=== PATIENT | male | born 1960 | race Caucasian/White ===

== ENCOUNTER 2018-10-12 02:07 | Outpatient (CLI) | payer OTHER, SELFPAY ==
[2018-10-12 10:55] LABS: HCT 42.8 % (40.0-50.0); HGB 14.5 g/dL (13.5-17.5); Mean Corp. HGB Concentration 33.9 g/dL (32.0-36.0); Mean Corpuscular Hemoglobin 29.8 pg (27.0-33.0); Mean Corpuscular Volume 88.1 fL (80-95); Mean Platelet Volume 12.2 fL (8.0-11.0); Platelet Count 198 x1000/uL (130-400); RBC 4.86 m/cumm (4.50-6.00); RBC Distribution Width 13.8 % (11.8-14.1); White Blood Cell Count 6.41 k/cumm (4.4-10.8)
[2018-10-12 10:58] LABS: ALT 43 U/L (12-78); AST 21 U/L (15-37); Albumin 3.8 g/dL (3.4-5.0); Alkaline Phosphatase 78 U/L (46-116); Anion Gap 9.8 mmol/L (3-11); BUN 14 mg/dL (7-18); Bilirubin, Total 0.7 mg/dL (0.2-1.0); CO2 26.2 mmol/L (21.0-32.0); CREATININE 0.95 mg/dL (0.70-1.30); Calcium 9.7 mg/dL (8.5-10.1); Chloride 106 mmol/L (98-107); Glucose 101 mg/dL (70-100); Potassium 4.4 mmol/L (3.5-5.1); Sodium 142 mmol/L (136-145); Total Protein 6.9 g/dL (6.4-8.2)
[2018-10-12 11:13] LABS: Calculated LDL 128 mg/dL; Cholesterol 205 mg/dL (50-200); HDL Cholesterol 28 mg/dL (40-60); Triglyceride 248 mg/dL (30-150)
== END 2018-10-12 02:27 ==
PROVIDERS: PCP Family Medicine; Visit Provider Family Medicine
DX: E78.5 Hyperlipidemia, unspecified (principal); I10 Essential (primary) hypertension; M10.9 Gout, unspecified
CPT/HCPCS: 36415; 80053; 80061; 83721; 85027

== ENCOUNTER 2019-11-01 03:04 | Outpatient (CLI) | payer OTHER, SELFPAY ==
[2019-11-01 07:20] LABS: HCT 43.4 % (40.0-50.0); HGB 14.9 g/dL (13.5-17.5); Mean Corp. HGB Concentration 34.3 g/dL (32.0-36.0); Mean Corpuscular Hemoglobin 29.8 pg (27.0-33.0); Mean Corpuscular Volume 86.8 fL (80-95); Mean Platelet Volume 11.3 fL (8.0-11.0); Platelet Count 185 x1000/uL (130-400); RBC Distribution Width 13.6 % (11.8-14.1); White Blood Cell Count 5.99 k/cumm (4.4-10.8)
[2019-11-01 08:04] LABS: ALT 35 U/L (16-63); AST 25 U/L (15-37); Albumin 3.8 g/dL (3.4-5.0); Alkaline Phosphatase 82 U/L (46-116); Anion Gap 9.3 mmol/L (3-11); BUN 13 mg/dL (7-18); Bilirubin, Total 0.7 mg/dL (0.2-1.0); CO2 26.7 mmol/L (21.0-32.0); CREATININE 1.07 mg/dL (0.70-1.30); Calcium 9.5 mg/dL (8.5-10.1); Calculated LDL 119 mg/dL (<100); Chloride 104 mmol/L (98-107); Cholesterol 200 mg/dL (<200); Glucose 108 mg/dL (74-106); HDL Cholesterol 26 mg/dL (40-60); Sodium 140 mmol/L (136-145); Total Protein 6.9 g/dL (6.4-8.2); Triglyceride 279 mg/dL (<150)
== END 2019-11-01 03:24 ==
PROVIDERS: PCP Family Medicine; Visit Provider Family Medicine
DX: E78.5 Hyperlipidemia, unspecified (principal); I10 Essential (primary) hypertension; M10.9 Gout, unspecified
CPT/HCPCS: 36415; 80053; 80061; 85027

== ENCOUNTER 2020-05-03 11:19 | Outpatient (CLI) | payer OTHER, SELFPAY ==
--- NOTE | 2020-05-03 11:15 | DI.RAD_ITS ---
EXAM: XR HIP LT COMPLETE AP PELVIS CLINICAL HISTORY: LEFT HIP PAIN. TECHNIQUE: 2D digital imaging was performed. COMPARISON: No exams were available for comparison FINDINGS: BONES: No acute fracture is present. No bony destructive lesion is seen. JOINTS: There is narrowing of the left hip joint space. There is prominence of the lateral aspect of the left femoral head which may lead to impingement. The right hip appears well maintained. SOFT TISSUE: Normal. IMPRESSION: Degenerative changes of the left hip as described above. Findings raising the question of impingemen t of the left hip. DATA REPOSITORY: RADIATION DOSE DELIVERED:
== END 2020-05-03 11:39 ==
PROVIDERS: PCP Family Medicine; Referring Provider Family Medicine; Visit Provider Student in an Organized Health Care Education/Training Program
DX: M16.12 Unilateral primary osteoarthritis, left hip (principal)
CPT/HCPCS: 73502

== ENCOUNTER 2020-09-21 19:38 | Outpatient (REF) | payer OTHER, SELFPAY ==
[2020-09-23 22:36] LABS: COVID-19 RT-PCR UVMMC Result Positive (Negative)
== END 2020-09-21 19:39 | disposition home or self-care (01) ==
LOC: LBN 19:38
PROVIDERS: PCP Nurse Practitioner Family; Visit Provider Nurse Practitioner Family
DX: Z20.822 Contact with and (suspected) exposure to COVID-19 (principal); J02.9 Acute pharyngitis, unspecified
CPT/HCPCS: U0003

== ENCOUNTER 2020-11-01 03:21 | Outpatient (CLI) | payer OTHER, SELFPAY ==
[2020-11-01 13:03] LABS: Hemoglobin A1C 5.3 % (<5.7)
[2020-11-01 13:12] LABS: ALT 30 U/L (16-63); AST 20 U/L (15-37); Albumin 3.8 g/dL (3.4-5.0); Alkaline Phosphatase 68 U/L (46-116); BUN 16 mg/dL (7-18); Bilirubin, Total 0.7 mg/dL (0.2-1.0); CREATININE 0.9 mg/dL (0.70-1.30); Calcium 9.3 mg/dL (8.5-10.1); Calculated LDL 90 mg/dL (<100); Chloride 106 mmol/L (98-107); Cholesterol 151 mg/dL (<200); Glucose 105 mg/dL (74-106); HDL Cholesterol 36 mg/dL (40-60); Potassium 4.5 mmol/L (3.5-5.1); Sodium 143 mmol/L (136-145); Total Protein 6.7 g/dL (6.4-8.2); Triglyceride 126 mg/dL (<150)
== END 2020-11-01 03:22 | disposition home or self-care (01) ==
LOC: LOS 03:21
PROVIDERS: PCP Nurse Practitioner Family; Visit Provider Nurse Practitioner Family
DX: Z00.00 Encounter for general adult medical examination without abnormal findings (principal); Z13.220 Encounter for screening for lipoid disorders; Z13.1 Encounter for screening for diabetes mellitus
CPT/HCPCS: 36415; 80053; 80061; 83036

== ENCOUNTER 2021-11-22 01:05 | Outpatient (CLI) | payer OTHER, SELFPAY ==
[2021-11-22 12:41] LABS: CREATININE 0.9 mg/dL (0.70-1.30)
== END 2021-11-22 01:06 | disposition home or self-care (01) ==
LOC: LOS 01:05
PROVIDERS: PCP Nurse Practitioner Family; Visit Provider Nurse Practitioner Family
DX: I10 Essential (primary) hypertension (principal)
CPT/HCPCS: 36415; 82565

== ENCOUNTER 2022-05-05 02:47 | Outpatient (CLI) | payer OTHER, SELFPAY ==
[2022-05-05 10:45] LABS: HCT 47.7 % (40.0-50.0); HGB 16.2 g/dL (13.5-17.5); MCH 29.9 pg (27.0-33.0); MCV 88 fL (80-95); MPV 11.1 fL (8.0-11.0); Platelet Count 215 10^3/uL (130-400); RBC 5.41 10^6/uL (4.36-5.78); RDW 12.7 % (11.8-14.1); RDW-SD 41.3 fL; WBC 7.93 10^3/uL (4.4-10.8)
[2022-05-05 11:19] LABS: Anion Gap 6.6 mmol/L (3-11); BUN 23 mg/dL (7-18); CO2 28.4 mmol/L (21.0-32.0); Calcium 9.4 mg/dL (8.5-10.1); Chloride 104 mmol/L (98-107); Estimated GFR 86.16 (mL/min/1.73m2); Glucose 110 mg/dL (74-106); Potassium 4.4 mmol/L (3.5-5.1); Sodium 139 mmol/L (136-145)
== END 2022-05-05 02:48 | disposition home or self-care (01) ==
LOC: LBO 02:47
PROVIDERS: PCP Nurse Practitioner Family; Visit Provider Student in an Organized Health Care Education/Training Program
DX: M16.12 Unilateral primary osteoarthritis, left hip (principal); Z01.818 Encounter for other preprocedural examination
CPT/HCPCS: 36415; 80048; 85027

== ENCOUNTER 2022-05-05 11:27 | Outpatient (CLI) | payer OTHER, SELFPAY ==
--- NOTE | 2022-05-05 11:00 | DI.RAD_ITS ---
Exam(s) XR PELVIS AP EXAM: XR PELVIS AP CLINICAL HISTORY: left hip pain. TECHNIQUE: 2D digital imaging was performed. COMPARISON: CR XR HIP LT COMPLETE AP PELVIS from 05/03/2020 FINDINGS: BONES: No acute fracture is present. No bony destructive lesion is seen. JOINTS: No dislocation present. Moderate to severe narrowing of the right superior hip joint space. Spurring at the inferior margin of the femoral head. Adjacent calcification. Slight worsening when compared with prior. Right hip unremarkable. SOFT TISSUE: Normal. IMPRESSION: Moderate severe degenerative changes left hip. DATA REPOSITORY: RADIATION DOSE DELIVERED:
== END 2022-05-05 11:28 | disposition home or self-care (01) ==
LOC: DIORS 11:28
PROVIDERS: PCP Nurse Practitioner Family; Referring Provider Nurse Practitioner Family; Visit Provider Physician Assistant
DX: M16.12 Unilateral primary osteoarthritis, left hip (principal)
CPT/HCPCS: 72170

== ENCOUNTER 2022-05-14 05:46 | Day surgery (SDC) | payer OTHER, SELFPAY ==
[2022-05-14] VITALS (16 sets, daily range): BP systolic 73–171; BP diastolic 36–99; PULSE 39–55; RESP 15–21; TEMP 35.6–36.6; O2SAT 96–100; BMI 32.8
[2022-05-14] MEDS: Acetaminophen 500 MG TAB 1000 MG PO (06:33)
[2022-05-14] MEDS: Celecoxib 200 MG CAP 400 MG PO (06:33)
[2022-05-14] MEDS: Lactated Ringers 1,000 ML 80 ML IV (06:55)
--- NOTE | 2022-05-14 06:57 | ANES.PREOP_ITS ---
General Info Date of Service Date Performed: 05/14/22 Height: 5 ft 10 in Weight: 103.7 kg Body Mass Index (BMI): 32.8 Surgical Procedure: Operation Date: 05/14/22 07:50 Proposed Procedure Side Surgeon p Hip Total Hip Anterior Left Vivek Aleman MD Meds Allergies and Home Medications Allergies Allergy/AdvReac Type Severity Reaction Status Date / Time Penicillins Allergy Intermediate HIVES Verified 05/14/22 06:16 amlodipine Allergy Mild Verified 05/14/22 06:16 Home Medication Medication Instructions Recorded lisinopril 10 mg tablet (Zestril) 5 mg PO BID #90 tab-caps 11/11/21 rosuvastatin 10 mg tablet 10 mg PO HS #90 tabs 11/18/21 allopurinol 300 mg tablet 300 mg PO DAILY #90 tab-caps 02/10/22 atenolol 25 mg tablet 25 mg PO BID #180 tab-caps 02/10/22 diltiazem HCl 120 mg 120 mg PO DAILY #90 tab-caps 02/10/22 capsule,extended release 24 hr (Cardizem CD) naproxen sodium 220 mg tablet 660 mg PO BID PRN 05/14/22 (Aleve) Current Visit Medications: Current Medications Generic Name Dose Route Start Last Admin Trade Name Freq PRN Reason Stop Dose Admin Acetaminophen 1,000 mg 05/14/22 06:00 05/14/22 06:33 Acetaminophen 500 Mg Tab PO 1,000 mg PREOP STERLING Administration Celecoxib 400 mg 05/14/22 06:00 05/14/22 06:33 Celecoxib 200 Mg Cap PO 400 mg PREOP STERLING Administration Tranexamic Acid 1,000 mg/ 60 mls @ 360 mls/hr 05/14/22 06:00 Sodium Chloride IV PREOP STERLING Ringer's Solution 1,000 mls @ 80 mls/hr 05/14/22 06:00 IV 06/12/22 23:59 INFUSION STERLING Cefazolin Sodium/Dextrose 2 gm in 50 mls @ 100 mls/hr 05/14/22 06:00 Ancef Duplex IVPB 06/12/22 23:59 PREOP STERLING IV Miscellaneous Supplies 1 each 05/14/22 06:00 Iv Access IV 06/12/22 23:59 DIRECTED STERLING Sodium Chloride 0 ml 05/14/22 06:00 Normal Saline Flush 10 Ml Syr IV 06/12/22 23:59 PRN PRN Sodium Chloride 0 ml 05/14/22 06:00 Normal Saline 10 Ml Vial IJ 06/12/22 23:59 DIRECTED PRN Sterile Water 0 ml 05/14/22 06:00 Water,Injection,Sterile 10 Ml Vial IJ 06/12/22 23:59 DIRECTED PRN PFSH Active Problems Active Problems: Problem Status Onset Code Essential hypertension I10 Gout 08/17/13 M10.9 Hyperlipidemia 08/11/12 E78.5 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 Tobacco Smoking/Tobacco Use Status: Never Passive smoking exposure: Yes Second hand exposure: Yes Alcohol Alcohol Intake: current Alcohol intake frequency: a few times a month Alcohol type: beer Substance Use Substance use: Never Substance use type: does not use Details: alcohol:t-2, one beer Vital Signs and Lab Results Vital Signs Most Recent Vital Signs in EMR: Most Recent Vital Signs Temp Pulse Resp BP Pulse Ox 36.2 C L 46 L 18 171/99 H 98 05/14/22 06:22 05/14/22 06:22 05/14/22 06:22 05/14/22 06:22 05/14/22 06:22 Lab Results Blood Type / Crossmatch: No Data to Display Complete Blood Count: White Blood Count 7.93 10^3/uL (4.4-10.8) 05/05/22 10:40 Red Blood Count 5.41 10^6/uL (4.36-5.78) 05/05/22 10:40 Hemoglobin 16.2 g/dL (13.5-17.5) 05/05/22 10:40 Hematocrit 47.7 % (40.0-50.0) 05/05/22 10:40 Platelet Count 215 10^3/uL (130-400) 05/05/22 10:40 Complete Metabolic Panel: Sodium 139 mmol/L (136-145) 05/05/22 10:40 Potassium 4.4 mmol/L (3.5-5.1) 05/05/22 10:40 Chloride 104 mmol/L (98-107) 05/05/22 10:40 Carbon Dioxide 28.4 mmol/L (21.0-32.0) 05/05/22 10:40 BUN 23 mg/dL (7-18) H 05/05/22 10:40 Creatinine 1.0 mg/dL (0.70-1.30) 05/05/22 10:40 Est GFR (CKD-EPI 2020) 86.16 (mL/min/1.73m2) 05/05/22 10:40 Calcium 9.4 mg/dL (8.5-10.1) 05/05/22 10:40 Glucose 110 mg/dL (74-106) H 05/05/22 10:40 Liver Function Panel: No Data to Display Coagulation Panel: No Data to Display Cardiac Panel: No Data to Display Arterial Blood Gas: No Data to Display Venous Blood Gas: No Data to Display Pancreas Panel: No Data to Display Thyroid Panel: No Data to Display Infectious Disease: No Data to Display Blood Cultures: No Data to Display Toxicology Panel: No Data to Display Anesthesia Assessment and Plan Anesthesia History Personal History: No History of Anesthesia Complications Family History: No Family History of Anesthesia Complications Exercise Tolerance Exercise Tolerance: Metabolic Equivalents>4 Pertinent Negatives Pertinent Negatives: No Symptoms of GERD, No Major Cardiovascular Symptoms or Complaints and No Major Pulmonary Symptoms or Complaints Cardiac & Pulmonary Exam Cardiac Exam: Normal S1/S2 Heart Sounds Pulmonary Exam: Clear Bilateral Breath Sounds Implantable Cardiac Device Does patient have a Pacemaker or an ICD?: No Airway Exam Known Difficult Airway: No Mallampati Class: 3 Mouth Opening: Normal (> 3cm) Thyromental Distance: Greater than 3 cm Facial Hair: Full Barrera Neck Range of Motion: Full ROM Neck Circumference: Thick Teeth Condition: Normal Dentition ASA Classification ASA Score: ASA 2 Emergency Case?: No NPO Status NPO Status: NPO Clears >2 hours, Solids >8 hours Anesthesia Plan Resuscitation Status: Full Code Anesthesia Technique: Spinal Anesthesia Airway Planned: Natural Airway Monitors Used: Standard Monitors
[2022-05-14] MEDS: ceFAZolin 2 GM/50 ML BAG IVPB (07:43)
--- NOTE | 2022-05-14 08:12 | W.PM.DS.N ---
Date of service: 05/14/22 Time of Service: 09:59 Discharge Plan Disposition Patient Disposition: Home Condition: Good Discharge Details Reason For Visit: Left hip DJD Attending Provider: Vivek Aleman Primary Care Provider: Prakash Eubanks Home Meds and New Rx's Prescriptions: New celecoxib [Celebrex] 200 mg capsule 200 mg PO BID PRNQty: 60 0RF Rx Instructions: Take one tablet twice daily for pain and inflammation aspirin 81 mg tablet,delayed release (DR/EC) 81 mg PO BID 30 Days Qty: 60 0RF acetaminophen 500 mg tablet 500 mg PO Q6H PRN (Reason: pain) Qty: 60 2RF pantoprazole 40 mg tablet,delayed release (DR/EC) 40 mg PO DAILY Qty: 14 0RF dexamethasone 4 mg tablet 4 mg PO DAILY Qty: 2 0RF Rx Instructions: Take one tablet once daily for two days docusate sodium [Colace] 100 mg capsule 100 mg PO BID Qty: 30 0RF oxycodone 5 mg tablet 5 mg PO Q6H PRN (Reason: severe post-operative pain) Qty: 12 0RF Rx Instructions: Take one tablet up to every 6 hours as needed for severe pain Continued lisinopril [Zestril] 10 mg tablet 5 mg PO BID Qty: 90 0RF rosuvastatin 10 mg tablet 10 mg PO HS Qty: 90 3RF allopurinol 300 mg tablet 300 mg PO DAILY Qty: 90 4RF diltiazem HCl [Cardizem CD] 120 mg capsule,extended release 24hr 120 mg PO DAILY Qty: 90 4RF atenolol 25 mg tablet 25 mg PO BID Qty: 180 4RF Discontinued naproxen sodium [Aleve] 220 mg Tablet 660 mg PO BID PRN Discharge Instructions Additional Instructions: Total Hip Discharge Instructions Activity: The most important activity is to walk. You should try to take short walks a few times a day. You have no restrictions on movement or positioning, but do not try to force what you do. You will find some stiffness and weakness with hip flexion (lifting your knee). Do not try to strengthen this too early, continue to practice walking and stairs and this will come. - Outpatient physical therapy can be helpful to help return you to a normal gait and improve your flexibility and strength. This can start around 2 weeks. For some patients, it?s not necessary. Usually this is determined at the time of discharge or at the first post-operative visit. - You should wear the JOSEFA hose on both legs for 2 weeks. Dressing: Keep the surgical dressing in place for at least one week. After the first week it may be removed and replace with light gauze and tape or nothing. It may get wet after 3 days but avoid soaking the dressing. If it gets wet, just lightly pat dry. It is important to always keep some gauze between skin folds, especially when you are sitting. Spend some time with the wound exposed when you are lying flat as the incision does wrinkle onto itself. Medications: - You should take Tylenol and an anti-inflammatory Celebrex as your primary pain control medications. If the Celebrex is too expensive or not covered, please call the office for another alternative (Advil/Ibuprofen or Naproxen/Aleve). - You have been prescribed a stronger pain medication Oxycodone for breakthrough pain, take as needed as prescribed. - You have also been prescribed a stomach acid reduction agent Pantoprozole to help reduce stomach acid and reflux. - You have also been prescribed Decadron to help with post-operative nausea and pain. You will take this for two days starting tomorrow. - You will be taking Aspirin 81mg twice a day for DVT prevention unless instructed otherwise. - If you have constipation you should take Colace (which was prescribed) or Miralax (which is available [id number]). It takes most people 3-4 days to have a bowel movement. Follow-up: 2 weeks If you have any acute concerns or questions, please do not hesitate to contact the office at [phone]. You may contact Dr. Aleman with any questions after hours through the hospital at [phone] or on his cell phone at [phone]. Stand Alone Forms: Anesthesia Discharge Inst., Chiki Burkett ([facility]U) Referrals: Vivek Aleman MD [ [facility] STAFF PHYSICIAN] - Equipment/Supplies: Walker Activity:: Activity as Tolerated Remove Dressings/Wound Care:: Do Not Remove Shower/Bathe:: Cover Diet:: As Tolerated Discharge Orders Discharge Orders: Discharge Order (Routine); Ordered 05/14/22 Ordered By: Vivek Aleman DS: Summary Time Spent with Patient providing and/or coordinating discharge services: Less than 30 minutes Status at Discharge Functional status at discharge: uses cane/walker Overall status at discharge: patient is progressing back to baseline Mental Status: mental status grossly normal Speech and Movement: speech and movement normal Mood: congruent mood Affect: normal affect Exam Psych Mental Status: mental status grossly normal Speech and Movement: speech and movement normal Mood: congruent mood Affect: normal affect DS: Data Vitals/I&O Vitals and I&O: Vital Signs Temperature 97.2 F L 05/14/22 06:22 Pulse 46 L 05/14/22 06:22 Pulse Rhythm Regular 05/14/22 06:22 Respiratory Rate 18 05/14/22 06:22 Respiratory Depth Normal 05/14/22 06:22 Blood Pressure 171/99 H 05/14/22 06:22 Pulse Oximetry 98 05/14/22 06:22 Oxygen Delivery Method Room Air 05/14/22 06:22 Oxygen Flow Rate 0 05/14/22 06:22 Pain Level 5 05/14/22 06:22 Intake & Output 05/13/22 05/13/22 05/14/22 11:59 23:59 11:59 Intake Total 110 / 110 Balance 110 / 110 Weight 230 lb 228 lb 9.91 oz Intake: IV 110 / 110 PFSH All Active Problems (Updated 05/14/22 @ 07:34 by Geena Matta) Essential hypertension (Acute) Gout (Acute 08/17/13) Hyperlipidemia (Acute 08/11/12) Femoral acetabular impingement (Acute) Osteoarthritis of left hip (Acute) Fatigue (Acute) Medical History (Updated 05/14/22 @ 07:34 by Geena Matta) History of obstructive sleep apnea uses CPAP Hx of essential hypertension Hx of gout Hx of hyperlipidemia Surgical History RETINAL SURGERY (12/12/16) [facility] Family History Mother , 80 years old Lung cancer Father , ANEURYSM at age 79. Essential hypertension AAA (abdominal aortic aneurysm) Heart disease Hyperlipidemia Sister No problems noted. Maternal Grandfather , 77 Essential hypertension Heart disease Hyperlipidemia Prostate cancer Paternal Grandfather , 45 Essential hypertension Heart disease Maternal Grandmother , 89 No problems noted. Paternal Grandmother , 62 Lung cancer smoker Sister Breast cancer Social History (Updated 10/10/21 @ 10:01 by Karina Mayorga) Smoking/Tobacco Use Status: Never Second Hand Exposure: Yes Smoking risk assessment performed?: Yes Alcohol Intake: current Alcohol Intake frequency: a few times a month Alcohol type: beer Drug use: Never Substance use type: does not use Details: alcohol:t-2, one beer Caregiver/Support person: No Household members: none Housing: house Communication Needs: None Do you need help understanding health information?: Never Pets and animals: Yes Pets and animals: dog(s) Sexually active: Yes Do you think of yourself as: straight/heterosexual Current gender identity: male What is your relationship status?: How often do you talk on the phone with friends or family?: three or more times per week How often do you get together with friends or relatives?: once per week How often do you attend sikhism or presybeterian services?: 1-3 times per year Do you belong to any clubs or organized social groups?: yes Panel score (0-1 are the most socially isolated patients): 2 What type of physical activity do you participate in: walking Duration: 15-30 minutes/day Frequency: daily Adela/Episcopalian: No preference Special adela needs: No Seatbelt use: always Helmet use: No Drive intox or ride w/intox van driver helper: No Do you feel safe at home: Yes Do you feel safe in your relationship?: Yes Additional Social history: unable to assess privately Time Spent with Patient Time Spent with Patient: <45 minutes Time was spent: ordering medications,tests, procedures, referring, communicating with other health inpatient care manager rn, counseling the patient and care coordination
--- NOTE | 2022-05-14 09:00 | DI.RAD_ITS ---
Exam(s) XR HIP LT IN OR EXAM: XR HIP LT IN OR CLINICAL HISTORY: left total hip. TECHNIQUE: 2D and realtime digital imaging was performed. COMPARISON: CR XR PELVIS AP from 05/05/2022 FINDINGS: Hard copy images show placement of a left hip prosthesis. The alignment appears satisfactory. Please see procedure note for details. Fluoro time: 33seconds RADIATION DOSE DELIVERED: Ka,r=5.73 mGy
[2022-05-14] MEDS: ePHEDrine 25 MG/5 ML Syringe IVP ×3 (09:45→10:05)
[2022-05-14] MEDS: fentaNYL 100 MCG/2 ML VIAL IVP (10:34)
--- NOTE | 2022-05-14 10:40 | W.ANESPOSTOP ---
Postoperative Evaluation Date, Time and Location Date Performed: 05/14/22 Time Performed: 10:40 Patient Location: PACU Vital Signs Most Recent Imported Vital Signs: Most Recent Vital Signs Temp Pulse Resp BP Pulse Ox 36.6 C 42 L 15 117/63 100 05/14/22 10:20 05/14/22 10:35 05/14/22 10:35 05/14/22 10:35 05/14/22 10:35 Pain Score Most Recent Pain Score: Most Recent Pain Score Pain Level 7 05/14/22 10:35 Assessment Mental Status: Awake (Alert & Oriented to Patient Baseline) Airway and Respiratory Function: Patent airway with normal (patient baseline) respiratory exam Cardiovascular Function: Hemodynamically Stable Hydration Status: Adequately Hydrated Nausea & Vomiting: No Nausea or Vomiting Pain: Pt. Denies Any Pain Peripheral Nerve Block: Patient did not receive a nerve block
--- NOTE | 2022-05-14 12:55 | PT.INIE ---
Date of service: 05/14/22 Time of Service: 12:55 PT Notes Visit Reasons: Left hip DJD Physical Therapy Day Surgery Initial Evaluation Date: 05/14/2022 Referring Doctor: GALI Hui PT Orders: PT CONSULT: S/p Ortho surgery Precautions: WBAT on left LE with AD. Patient Profile/Admitting Diagnosis: Estevan is a 61-year-old male with degenerative joint disease of the left hip and status post left anterior total hip arthroplasty on postoperative day 0. PMHX: All Active Problems?(Updated 06/28/21 @ 10:31 by Prakash Eubanks NP) Fatigue (Acute) Osteoarthritis of left hip (Acute) Femoral acetabular impingement (Acute) Hyperlipidemia (Acute 08/11/12) Gout (Acute 08/17/13) Essential hypertension (Acute) Surgical History? RETINAL SURGERY (12/12/16) [facility] Social History/Home Situation: Independent with aspects of ADLs prior to surgery. Lives with in a private home with 3 steps to enter with 1 rail, 7 steps down to their bedroom with 1 rail. Owns a restaurant with . Equipment Owned/DME: None Subjective: Reports minimal burning sensation at surgical incision site. Objective: General Observation: TEDS to B legs. Cold pack to left hip. Alert and oriented x4 Mental Status: Pain: 2-3/10 in the L hip ROM: Right Lower Extremity: Hip flexion WFL. Hip abduction WFL. Knee flexion WFL. Ankle dorsiflexion WFL. Ankle plantarflexion WFL. Left Lower Extremity: Hip flexion WFL. Hip abduction WFL. Knee flexion WFL. Ankle dorsiflexion WFL. Ankle plantarflexion WFL. Strength: Right Lower Extremity: Hip flexors 5/5. Hip abductors 5/5. Knee flexors 5/5. Knee extensors 5/5. Ankle dorsiflexors 5/5. Ankle plantarflexors 5/5. Left Lower Extremity:Hip flexors 4/5. Hip abductors 4/5. Knee flexors 5/5. Knee extensors 4/5. Ankle dorsiflexors 5/5. Ankle plantarflexors 5/5 Sensation: Intact as to pain and light pressure in bilateral lower extremities Bed Mobility/Transfers: Supine to sit standby assist Sit to stand standby assist Stand to sit standby assist Bed to chair standby assist Gait: Tolerated level surface ambulation 150 feet using front wheeled walker with step through gait pattern with report of burning sensation at surgical incision site that is minimally limited distance covered. Stairs: Negotiated 6 x 4-inch steps and 4 x 6-inch steps while holding onto a rail with one hand and a single-point cane with the other hand using step-to gait pattern with standby assist. Balance: Static Sitting: Normal Dynamic Sitting: Normal Static Standing: Fair Dynamic Standing: Fair Special Tests: Mobility Limitations Standardized Measure [facility] [place] AM-PAC 6 clicks Basic Mobility Inpatient Short Form: Raw Score: 23 CMS Score: 11% deficit Informed Consent/Education: Patient instructed in purpose of PT consult. Packet containing MADDY exercise protocol has been given to patient. Education and training on initial set of exercises that can be done at home have been completed with patient and . THERA EX: Supine glutes sets x 5 Supine heel slides x 5 Supine ankle pumps x 10 Seated marches x 5 LAQ x 5 Assessment: Estevan requires the use of a front-wheeled walker to maximize independence and reduce fall risk for all mobility ADL performance at home. Patient presents with clinical signs and symptoms consistent with current/admitting diagnoses that have resulted to mobility limitations, gait instability, generalized weakness, and impairment of motor control as demonstrated by the following impairment level findings: 1. Decreased strength to left knee major muscle groups 2. Impaired standing balance Impairments are contributing to the following functional limitations: 1. Inability to safely ambulate without assistive device 2. Increase completion time for mobility ADL performance Patient is assessed as a complexity based on the following: History: 61-year-old male with impairment level findings, functional limitations, and past medical history as indicated above Examination: Demonstrable impairment in strength, balance, and mobility level with underlying impairments and functional limitations as documented above Presentation: Evolving Decision Makin moderate complexity Goals: N/A. PT evaluation and 1-2 treatment sessions only for functional mobility training using recommended AD and for HEP instruction. Plan of Care/Treatment Plan: N/A. PT evaluation and 1-2 treatment session only for functional mobility training using recommended AD and for HEP instruction. DISCHARGE RECOMMENDATIONS: Home when medically cleared by orthopedic surgeon. Recommend outpatient PT services in order to optimize functional mobility outcomes and facilitate return to independent community ambulation and vocational activities without an assistive device TREATMENT CODE/TIME: . [id number] x 20 minutes, [id number] x 15 minutes beginning at 12:55 PM. Thank you for the opportunity to participate in the care of this patient. Jazmín Marsh PT, DPT, CLT [facility] [place], [place]
--- NOTE | 2022-05-14 16:23 | ROE_ITS ---
Date of service: 05/14/22 Time of Service: 09:15 Operative Note Operative Note DATE OF PROCEDURE: 05/14/22 PRE-OP DIAGNOSIS: Left Hip Femoroacetabular Impingement and Osteoarthritis POST-OP DIAGNOSIS: same PROCEDURE: Left Anterior Total Hip Arthroplasty with Intraoperative Navigation SURGEON: Vivek Aleman CRIMINAL PSYCHOLOGIST: Naheed Garcia ANESTHESIA TYPE: Spinal Refer to Anesthesia Record ESTIMATED BLOOD LOSS: 350 PATHOLOGY: none sent TOURNIQUET TIME: 0 COMPLICATIONS: None Patient was transported to: PACU Patient's condition: stable Implants: 1. Depuy [place] Acetabular Component, 56mm 2. Depuy Acetabular Liner, [id number] 3. Depuy Corail Standard 125 degree Collared Femoral Stem, Size 14 4. Depuy Altrx Ceramic Femoral Head, Size 36+1.5mm Indications: I have seen Estevan in clinic for symptoms of hip arthritis, confirmed with radiographic findings. He has exhausted nonoperative methods and was having significant limitations in daily function and desired better function and less pain. I discussed the technical details of a hip replacement. I explained the risks of the procedure to include, but not limited to, bleeding, infection, pain, stiffness, fracture, damage to nerves and vessels, damage to muscles and tendons, loosening, instability, leg length inequality, need for repeat procedure, blood clot and cardiopulmonary demise. Despite these risks, Estevan elected to proceed. Findings: There was full thickness chondromalacia of the superior femoral head. Procedure Description: Estevan was greeted in the preoperative holding area where the correct side was identified and marked. The consent was reviewed with the patient and signed. The history and physical was updated. All questions were answered. Estevan was taken back to the operating room. A spinal anesthestic was then administered. The feet were wrapped with cast padding and Coban and then placed into the boot liners and then into the boots. Care was taken to protect the skin and make sure the heels were fully down and the boots were stable. The patient was then positioned onto the HANA table. Both legs were held in a neutral position. SCDs were applied. The patient was then slid down onto a peroneal post. Prophylactic antibiotics in the form of Cefazolin were administered. 1g of Tranxemic Acid was given intravenously within 30 minutes of incision. The left leg was then prepped with Chloraprep and draped in a standard fashion. A second prep with Chloraprep was performed prior to placement of a shower-curtain type drape with Iodine impregnated skin protection. A timeout to confirm correct identity, side and site, procedure, allergies, anesthesia, and medical concerns was performed. An obliquely oriented incision was made starting lateral to the ASIS and running distal over the Tensor Fascia Stephanie (TFL) muscle belly toward the fibular head, approximately 10cm. The skin and soft tissue was dissected sharply, through Guanako?s fascia, and to the fascia of the TFL. With the fascia and superior border of the IT band identified, the fascia was incised with a new knife just above any perforators from the IT band. The TFL muscle belly was bluntly dissected away from the fascia and moved laterally. The fat between TFL and rectus was identified to ensure the dissection was not within the TFL. Blunt dissection created space between abductors and the capsule and retractor was placed over the lateral femoral neck. The fibers of the rectus femoris tendon were identified and these were freed from the anterior capsule. A second cobra retractor was placed around the medial femoral neck. The TFL was further retracted laterally to show the deep fascia. Careful dissection through this layer identified three main crossing vessels of the lateral femoral circumflex. These were cauterized in multiple locations and then cut without any noticeable bleeding. The TFL was further released bluntly from the deep fascia to expose anterior hip capsule and fat The Marcio orthopaedic retractor was then placed beneath the TFL and against sartorius and medial soft tissues to protect and retract the soft tissues. A T-capsulotomy was then performed starting at the superior lateral acetabulum and moving distally to the intertrochanteric ridge. These capsular flaps were tagged with a No. 1 Ethibond and elevated from within. The capsular flaps were released to the shoulder of the lateral neck and to the lesser trochanter to give excellent visualization of the proximal femur. A neck osteotomy was performed using an oscillating saw based on preoperative templates. This cut started in the shoulder and of the lateral neck and exited medially. The saw was at all times directed medially to avoid injury to the greater trochanter. Gross traction was applied to the leg and the osteotomy opened. The femoral head was removed with a corkscrew, making sure to protect the TFL on its exit. Traction was released after head removal. This was measured on the back table to determine the starting reamer size. Portions of the rectus obscuring visualization were minimally elevated off the superior acetabulum. An anterior retractor was placed over the anterior wall between capsule and labrum and attached to the Gripper retraction system. The femur was rotated to 90 degrees and medial capsule was fully released until the lesser trochanter was palpable and visible; the femur was returned to 30 degrees. A posterior retractor was placed similarly between capsule and labrum. This provided excellent visualization. The contents of the cotyloid fossa were removed with electrocautery and the labrum was removed with a knife. Acetabular reaming began with a 52mm reamer. This first reaming was directed anterior to posterior and medial to get down to the true floor. This was inspected and reamed until the true floor was reached. The anterior retractor was then released and entry and exit was provided by traction on the capsular flaps. I then reamed sequentially up to a 56mm reamer where good fit was obtained. The larger reamers were oriented based on anatomical reference of the anterior and lateral patricio to ensure proper abduction and anteversion. Positioning and size was confirmed with the fluoroscopy. A 56mm Depuy [place] acetabular component was selected. The acetabulum was reamed around the periphery with the selected acetabular size to prevent a rim fit. The deep tissues were irrigated. The acetabular component was then impacted in a position of about 40-45 degrees of abduction and 15-20 degrees of anteversion, using the patient?s anatomy as the ultimate landmark. Fluoroscopy was used to confirm this. There was excellent religious leader of the acetabular component and the inserting handle was removed. The acetabular liner, Depuy 40d20ne polyethylene liner, was inserted and lined up with the tines of the acetabular component. There was no soft tissue interposition. The liner was then impacted into position and confirmed to be well-seated. A portion of the treva-articular cocktail was then injected around the acetabulum into the capsule and periosteum. This cocktail consisted of 123mg of Ropivacaine, 0.25mg of Epinephrine, 0.04mg of Clonidine, and 15mg of Ketorolac, diluted to 50cc. The leg was rotated to 120 degrees. Any remaining medial capsule was released until the lesser trochanter was easily palpable. A retractor was placed medially. The lateral capsule was further released into the shoulder to allow access to the greater trochanter. A Flores retractor was placed over the greater trochanter which allowed the trochanter to flip in front of the capsule for excellent exposure. The leg was brought down into maximal extension and 20 degrees of adduction while ensuring there was no impingement on the acetabulum. Any remnant capsule within the trochanter was released. Piriformis and obturator externis were identified and protected. There was excellent access to the proximal femur. The lateral neck remnant was removed with a rongeur. A blunt canal probe was used to identify the canal and trajectory for later broaching. A box osteotome initiated the broach course. A small curved rasp and a curved curette were used to work laterally. Broaching then began with a size 8 Corail broach. This was inserted manually around the trochanter and into the canal before mallet blows. The broach was seated to a few millimeters below the cut level based on the neck cut and the preoperative template. Sequential broaching was continued with the [employer] pneumatic broaching device until a tight fit was obtained with good rotational control of the femur. A trial standard 125 degree neck was inserted along with a +5 trial head. The leg was brought out of extension and adduction and then reduced with traction and internal rotation. The leg was stable anteriorly in a position of 30 degrees of extension and 90 degrees of external rotation. Fluoroscopy was used to ensure there was no fracture and the stem was seated well. Leg lengths were checked with an AP pelvis and pelvic reference points. [employer] navigation system was used to confirm appropriate positioning and leg length and offset. To best recreate leg length and offeet, I advanced the stem 2-3mm and would go to a 1.5mm head. Once content with the desired offset and leg lengths, the leg was brought back into extension, external rotation and adduction. The periosteum and surrounding tissue was injected with remaining portion of the treva-articular cocktail. The proximal femur was irrigated as well as the deep tissues. The Depuy Cor[place] standard 125 degree collared stem, size 14, was then manually inserted into the proximal femur making sure to control rotation. It was then malleted into position with light blows, giving breaks to allow bone expansion and decrease risk of fracture. The selected Depuy Altrx Ceramic Head, size 36+1.5mm, was then placed onto the clean and dry trunnion and secured with impaction onto the tapered fit. The leg was brought back out of extension and adduction and reduced with traction and internal rotation. Stability was confirmed with no shuck at 90 degrees of external rotation and 30 degrees of extension. No impingement through range of motion arc. Final x-ray images were obtained with fluoroscopy to confirm adequate positioning and no intraoperative fracture. The deep tissues were thoroughly irrigated with Surgiphor, betadine solution. This was allowed to sit in the wound for 3 minutes before being thoroughly irrigated out with normal saline. The capsule was then reapproximated with the previously placed Ethibond sutures. The TFL fascia was finally closed with a No. 2 Stratafix, barbed suture. Deep tissues were then reapproximated with 0 Vicryl and a running 2-0 Vicryl. The skin was closed with a running 4-0 Monocryl in a subcuticular fashion. This was reinforced with skin glue. A Mepilex silver dressing was applied. At the end of the case, all counts were correct. Estevan was transferred to the hospital bed without difficulty and suffering no apparent complication. Estevan has a good prognosis. Physical therapy will start today and without restrictions, weight-bearing as tolerated. Aspirin 81mg BID will be used for DVT prophylaxis.
== END 2022-05-14 14:08 | disposition home or self-care (01) ==
PROVIDERS: PCP Nurse Practitioner Family; Visit Provider Student in an Organized Health Care Education/Training Program
PROC: (CPT 27130; principal; 2022-05-14 07:30)
DX: M16.12 Unilateral primary osteoarthritis, left hip (principal); E78.5 Hyperlipidemia, unspecified; I10 Essential (primary) hypertension
CPT/HCPCS: 27130; 20985; 97162; 97530; 73501; J0690; J2250; J2405; J2704; J3010

== ENCOUNTER 2022-05-29 12:04 | Outpatient (CLI) | payer OTHER, SELFPAY ==
--- NOTE | 2022-05-29 11:00 | DI.RAD_ITS ---
Exam(s) XR HIP LT COMPLETE AP PELVIS EXAM: XR HIP LT COMPLETE AP PELVIS CLINICAL HISTORY: 1st post op L MADDY. TECHNIQUE: 2D digital imaging was performed. COMPARISON: CR XR PELVIS AP from 05/05/2022 FINDINGS: Satisfactory position alignment of the recently placed left hip prosthesis components. No fracture o r loosening evident. IMPRESSION: Satisfactory appearance of left hip prosthesis. DATA REPOSITORY: RADIATION DOSE DELIVERED:
== END 2022-05-29 12:05 | disposition home or self-care (01) ==
LOC: DIORS 12:04
PROVIDERS: PCP Nurse Practitioner Family; Referring Provider Nurse Practitioner Family; Visit Provider Student in an Organized Health Care Education/Training Program
DX: Z96.642 Presence of left artificial hip joint (principal)
CPT/HCPCS: 73502

== ENCOUNTER 2023-05-15 08:16 | Outpatient (CLI) | payer OTHER, SELFPAY ==
--- NOTE | 2023-05-15 07:45 | DI.RAD_ITS ---
Exam(s) XR HIP LT AP LAT ONLY EXAM: XR HIP LT AP LAT ONLY CLINICAL HISTORY: ANNUAL F/U L MADDY. TECHNIQUE: 2D digital imaging was performed. Two images were obtained. AP and lateral views were ob tained. COMPARISON: CR XR HIP LT COMPLETE AP PELVIS from 05/29/2022 FINDINGS: BONES: There are stable post operative changes of a left total hip replacement present. No fracture or dislocation. JOINTS: The orthopedic hardware is in good position. No evidence of hardware loosening. SOFT TISSUE: Normal. IMPRESSION: Stable postoperative changes. DATA REPOSITORY: RADIATION DOSE DELIVERED:
== END 2023-05-15 08:17 | disposition home or self-care (01) ==
LOC: DIORS 08:16
PROVIDERS: PCP Nurse Practitioner Family; Referring Provider Nurse Practitioner Family; Visit Provider Student in an Organized Health Care Education/Training Program
DX: Z96.642 Presence of left artificial hip joint (principal)
CPT/HCPCS: 73502

== ENCOUNTER 2023-11-26 04:52 | Outpatient (CLI) | payer OTHER, SELFPAY ==
[2023-11-26 13:42] LABS: CREATININE 1.1 mg/dL (0.70-1.30); Potassium 3.9 mmol/L (3.5-5.1)
[2023-11-26 16:26] LABS: Hemoglobin A1C 5.8 % (<5.7)
[2023-11-26 17:35] LABS: Calculated LDL 96 mg/dL (<100); Cholesterol 165 mg/dL (<200); HDL Cholesterol 35 mg/dL (40-60); Triglyceride 170 mg/dL (<150)
== END 2023-11-26 04:53 | disposition home or self-care (01) ==
LOC: LOS 04:52
PROVIDERS: PCP Nurse Practitioner Family; Visit Provider Nurse Practitioner Family
DX: I10 Essential (primary) hypertension (principal); E78.2 Mixed hyperlipidemia; Z13.1 Encounter for screening for diabetes mellitus
CPT/HCPCS: 36415; 80061; 82565; 83036; 84132

== ENCOUNTER 2024-02-12 09:42 | Day surgery (SDC) | payer OTHER, SELFPAY ==
--- NOTE | 2024-02-11 15:53 | PDOC.DSDIS_ITS ---
Date of service: 02/12/24 Time of Service: 11:57 Discharge Plan Disposition Patient Disposition: Home Condition: Good Discharge Details Reason For Visit: screening colonoscopy Attending Provider: Josemanuel Lugo Primary Care Provider: Prakash Eubanks Home Meds and New Rx's Prescriptions: Continued lisinopril [Zestril] 10 mg tablet 10 mg PO BID Qty: 180 3RF allopurinol 300 mg tablet 300 mg PO DAILY Qty: 90 4RF diltiazem HCl [Cardizem CD] 120 mg capsule,extended release 24hr 120 mg PO DAILY Qty: 90 4RF atenolol 25 mg tablet 25 mg PO BID Qty: 180 4RF rosuvastatin 10 mg tablet 10 mg PO HS Qty: 90 3RF Discontinued bisacodyl 5 mg tablet,delayed release (DR/EC) 5 mg PO ONCE Qty: 8 0RF Rx Instructions: Per Colonoscopy bowel prep instructions polyethylene glycol 3350 17 gram/dose powder 238 g PO ONCE Qty: 238 0RF Rx Instructions: For Colonoscopy bowel prep, as directed by office Discharge Instructions Instructions: Diverticulosis Additional Instructions: Chart was pleasure meeting you today, and I hope you are comfortable during the procedure. I did not find any tumors or polyps anywhere along the length of your colon. Incidentally, you do have some diverticulosis. Diverticula are little weak spots in the muscular part of the colon wall. This causes the inside lining to pooch or pocket outwards. On some occasions, these can get infected and inflamed. Recall those episodes diverticulitis and they are typically experienced by the patient as painful attacks usually across the left side or lower portion of the abdomen. Usually, patients are quite sick when this happens, and often times it is treated with antibiotics. I hope yours never bother you. I did attach a little bit of information here about typical approaches to diverticular management. Generally, I recommend the patient's maintain a diet that is well-balanced, rich in fiber, and that they stay well- hydrated. If you have any questions at all, please do not hesitate to ask, otherwise I would recommend another screening colonoscopy in 10 years 1. If tolerated, consume a soft, low fiber diet for 1-2 days. 2[address] Do not drive, drink alcohol, operate machinery, make critical decisions, or do activities that require coordination or balance for 24 hours. 3. Because air was put into your colon during the procedure, expelling air from your rectum (passing gas or farting) is normal. 4. You may not have a bowel movement for 1-3 days because of the colonoscopy prep. This is normal. 5. Go directly to the emergency room if you notice any of the following: Develop chills (warm to touch), or if you have a thermometer and your temperature is above 101 Difficulty breathing or difficultly swallowing Persistent vomiting Severe abdominal pain, other than gas cramps Severe chest pain Black, tarry stools Any bleeding ? exceeding one tablespoon 6. Call your physician if the site where your intravenous was started becomes red, swollen, painful, and warm to touch. 7. Your physician has reviewed your pre-procedure medications. Please continue to take those medications as previously ordered. You will be given specific information/education regarding any changes to your medications before leaving. Activity:: Activity as Tolerated Diet:: As Tolerated Discharge Orders Discharge Orders: Discharge Order (Routine); Ordered 02/11/24 Ordered By: Josemanuel Lugo DS: Diagnosis Discharge Diagnosis (1) Encounter for screening colonoscopy: Status: Acute Asessment and Plan: Diverticulosis; otherwise negative screening colonoscopy
--- NOTE | 2024-02-11 15:54 | COLE_ITS ---
Date of service: 02/12/24 Time of Service: 11:59 Colonoscopy Report Date of procedure: 02/12/24 Pre-op diagnosis general: screening colonoscopy Post-op diagnosis procedure note: other (Diverticulosis) Procedure: colonoscopy Surgeon: Josemanuel Lugo Anesthesia Type: General:No Airway Estimated blood loss (mL): 0 Pathology: none sent Complications: None Disposition: same day Indications: Estevan is a 63 year old man who needs a screening colonoscopy Prep: Miralax/Dulcolax Procedure Start Time: 11:30 Procedure End Time: 11:43 Retraction Time: 10 Findings: Sigmoid diverticulosis Procedure Description: After the induction of anesthesia, and with the patient in left lateral decubitus position, I began by performing an external anorectal exam.? Perineum and skin were normal, as was the anal verge.? There was no evidence of external hemorrhoids.? Next, I performed a digital rectal exam.? I did not appreciate any abnormal findings.? Next, I advanced a colonoscope into the rectal vault.? I performed retroflexion.? This appeared normal.? Using insufflation, I then advanced the colonoscope beyond the rectal folds and into the sigmoid colon before advancing towards the cecum.? There is sigmoid diverticulosis.? The scope was noted to be in the cecum by identification of the ileocecal valve and appendiceal orifice.? I then began withdrawing the colonoscope using repeated irrigation as necessary for full evaluation of the colonic mucosa. ?Once the scope was withdrawn to the level of the rectum, great care was taken to examine portions of the rectal folds.? Finally, the scope was withdrawn and the patient was brought to the same-day surgery recovery unit as the anesthetic wore off. ?The findings and instructions were shared with the patient prior to discharge. Indore Bowel Prep Indore Bowel Prep Right Colon: 3 Left Colon: 3 Transverse Colon: 3 Total Score: 9
[2024-02-12 09:51] VITALS: BP 155/101; PULSE 70; RESP 16; TEMP 36; O2SAT 98
[2024-02-12] MEDS: Normal Saline Flush 10 ML SYR IV (10:13)
--- NOTE | 2024-02-12 10:59 | ANES.PREOP_ITS ---
General Info Date of Service Date Performed: 02/12/24 Height: 5 ft 9 in Weight: 102.5 kg Body Mass Index (BMI): 33.3 Surgical Procedure: Operation Date: 02/12/24 11:20 Proposed Procedure Side Surgeon david Lugo MD Meds Allergies and Home Medications Allergies Allergy/AdvReac Type Severity Reaction Status Date / Time Penicillins Allergy Intermediate HIVES Verified 02/12/24 10:00 amlodipine Allergy Mild unknown Verified 02/12/24 10:00 Home Medication ?Medication ?Instructions ?Recorded allopurinol 300 mg tablet 300 mg PO DAILY #90 tab-caps 02/18/23 atenolol 25 mg tablet 25 mg PO BID #180 tab-caps 02/18/23 diltiazem HCl 120 mg 120 mg PO DAILY #90 tab-caps 02/18/23 capsule,extended release 24 hr (Cardizem CD) rosuvastatin 10 mg tablet 10 mg PO HS #90 tabs 11/18/23 lisinopril 10 mg tablet (Zestril) 10 mg PO BID #180 tab-caps 02/01/24 Current Visit Medications: Current Medications Generic Name Dose Route Start Last Admin Trade Name Freq PRN Reason Stop Dose Admin Ringer's Solution 500 mls @ 80 mls/hr 02/12/24 06:00 IV 03/12/24 23:59 INFUSION STERLING IV Miscellaneous Supplies 1 each 02/12/24 06:00 Iv Access IV 03/12/24 23:59 DIRECTED STERLING Ondansetron HCl 4 mg 02/11/24 15:55 Ondansetron 4 Mg/2 Ml Vial IVP 03/12/24 15:54 Q4H PRN PRN Nausea / Vomiting Sodium Chloride 0 ml 02/12/24 06:00 02/12/24 10:13 Normal Saline Flush 10 Ml Syr IV 03/12/24 23:59 10 ml PRN PRN Administration Sodium Chloride 0 ml 02/12/24 06:00 Normal Saline 10 Ml Vial IJ 03/12/24 23:59 DIRECTED PRN Sterile Water 0 ml 02/12/24 06:00 Water,Injection,Sterile 10 Ml Vial IJ 03/12/24 23:59 DIRECTED PRN PFSH Active Problems Active Problems: Problem Status Onset Code Encounter for screening colonoscopy Acute Z12.11 Trochanteric bursitis, left hip Acute M70.62 Essential hypertension Acute I10 Gout Acute 08/17/13 M10.9 Hyperlipidemia Acute 08/11/12 E78.5 Fatigue Acute R53.83 Medical History Medical History History of obstructive sleep apnea uses CPAP Hx of gout Hx of hyperlipidemia Hx of essential hypertension Surgical History Surgical History History of total left hip arthroplasty (05/14/22) RETINAL SURGERY (12/12/16) [facility] Tobacco Smoking/Tobacco Use Status: Never Passive smoking exposure: Yes Second hand exposure: Yes Alcohol Alcohol Intake: current Alcohol intake frequency: a few times a month Alcohol type: beer Substance Use Substance use: Never Substance use type: does not use Vital Signs and Lab Results Vital Signs Most Recent Vital Signs in EMR: Most Recent Vital Signs Temp Pulse Resp BP Pulse Ox 36 C L 70 16 155/101 H 98 02/12/24 09:51 02/12/24 09:51 02/12/24 09:51 02/12/24 09:51 02/12/24 09:51 Lab Results Blood Type / Crossmatch: No Data to Display Complete Blood Count: No Data to Display Complete Metabolic Panel: No Data to Display Liver Function Panel: No Data to Display Coagulation Panel: No Data to Display Cardiac Panel: No Data to Display Arterial Blood Gas: No Data to Display Venous Blood Gas: No Data to Display Pancreas Panel: No Data to Display Thyroid Panel: No Data to Display Infectious Disease: No Data to Display Blood Cultures: No Data to Display Toxicology Panel: No Data to Display Anesthesia Assessment and Plan Anesthesia History Personal History: No History of Anesthesia Complications Family History: No Family History of Anesthesia Complications Exercise Tolerance Exercise Tolerance: Metabolic Equivalents>4 Pertinent Negatives Pertinent Negatives: No Symptoms of GERD, No Major Cardiovascular Symptoms or Complaints, No Major Pulmonary Symptoms or Complaints and No History of CVA/TIA Cardiac & Pulmonary Exam Cardiac Exam: Normal S1/S2 Heart Sounds Pulmonary Exam: Clear Bilateral Breath Sounds Cardiac and Pulmonary Comment:: ONI, did not tolerate CPAP Implantable Cardiac Device Does patient have a Pacemaker or an ICD?: No Airway Exam Known Difficult Airway: No Mallampati Class: 3 Mouth Opening: Normal (> 3cm) Thyromental Distance: Greater than 3 cm Neck Range of Motion: Full ROM Neck Circumference: Thick Teeth Condition: Normal Dentition ASA Classification ASA Score: ASA 2 Emergency Case?: No NPO Status NPO Status: NPO Clears >2 hours, Solids >8 hours Anesthesia Plan Resuscitation Status: Full Code Anesthesia Technique: General Anesthesia Airway Planned: Natural Airway Monitors Used: Standard Monitors
[2024-02-12 11:19] VITALS: BMI 33.3
[2024-02-12 11:50] VITALS: BP 137/92; PULSE 62; RESP 18; TEMP 36.7; O2SAT 95
[2024-02-12 12:06] VITALS: BP 135/78; PULSE 68; RESP 18; TEMP 36.8; O2SAT 96
--- NOTE | 2024-02-12 12:41 | W.ANESPOSTOP ---
Postoperative Evaluation Date, Time and Location Date Performed: 02/12/24 Time Performed: 12:06 Patient Location: Day Surgery Unit Vital Signs Most Recent Imported Vital Signs: Most Recent Vital Signs Temp Pulse Resp BP Pulse Ox 36.8 C 68 18 135/78 96 02/12/24 12:06 02/12/24 12:06 02/12/24 12:06 02/12/24 12:06 02/12/24 12:06 Pain Score Most Recent Pain Score: Most Recent Pain Score Pain Level 0 02/12/24 12:06 Assessment Mental Status: Awake (Alert & Oriented to Patient Baseline) Airway and Respiratory Function: Patent airway with normal (patient baseline) respiratory exam Cardiovascular Function: Hemodynamically Stable Hydration Status: Adequately Hydrated Nausea & Vomiting: No Nausea or Vomiting Pain: Pt. Denies Any Pain Peripheral Nerve Block: Patient did not receive a nerve block
== END 2024-02-12 12:25 | disposition home or self-care (01) ==
LOC: SUR 09:43
PROVIDERS: PCP Nurse Practitioner Family; Visit Provider Surgery
PROC: 0DJD8ZZ Inspection of Lower Intestinal Tract, Via Natural or Artificial Opening Endoscopic (ICD-10-PCS; CPT 45378; principal; 2024-02-12 11:15)
DX: Z12.11 Encounter for screening for malignant neoplasm of colon (principal); I10 Essential (primary) hypertension; K57.30 Diverticulosis of large intestine without perforation or abscess without bleeding
CPT/HCPCS: 45378; J2704

== ENCOUNTER 2024-04-15 11:22 | Outpatient (CLI) | payer MEDICAID, SELFPAY ==
--- NOTE | 2024-04-15 09:45 | DI.RAD_ITS ---
Exam(s) XR HIP LT COMPLETE AP PELVIS EXAM: XR HIP LT COMPLETE AP PELVIS CLINICAL HISTORY: left hip pain. TECHNIQUE: 2D digital imaging was performed. COMPARISON: Images of 05/15/2023 FINDINGS: Two views Satisfactory position alignment of the components of the left hip prosthesis. No fractures loosening evident. No evidence of osteomyelitis. IMPRESSION: Stable satisfactory appearance DATA REPOSITORY: RADIATION DOSE DELIVERED:
--- NOTE | 2024-04-15 10:15 | DI.RAD_ITS ---
Exam(s) XR TIB/FIB LT EXAM: XR TIB/FIB LT CLINICAL HISTORY: left lower extremity pain. TECHNIQUE: 2D digital imaging was performed. COMPARISON: No exams were available for comparison FINDINGS: Two views There is no evidence of fracture of the tibia and fibula. Bone density normal. No osseous lesions. Tibial plateau appears unremarkable. There is no obvious joint space narrowing in the medial latera l compartments of the knee nor at the level of the ankle tibiotalar joint. Bone density is normal. IMPRESSION: No significant radiograph findings in the tibia and fibula. DATA REPOSITORY: RADIATION DOSE DELIVERED:
== END 2024-04-15 11:23 | disposition home or self-care (01) ==
LOC: DIORS 11:36
PROVIDERS: PCP Nurse Practitioner Family; Visit Provider Physician Assistant
DX: M25.552 Pain in left hip (principal); Z96.642 Presence of left artificial hip joint
CPT/HCPCS: 73502; 73590

== ENCOUNTER 2024-12-08 04:19 | Outpatient (CLI) | payer MEDICAID, SELFPAY ==
[2024-12-08 12:29] LABS: Hemoglobin A1C 5.7 % (<5.7)
[2024-12-08 12:35] LABS: Anion Gap 11.2 mmol/L (3-11); BUN 11 mg/dL (7-18); CO2 25.8 mmol/L (21.0-32.0); Calculated LDL 93 mg/dL (<100); Chloride 104 mmol/L (98-107); Cholesterol 154 mg/dL (<200); Estimated GFR 84.57 (mL/min/1.73m2); Glucose 102 mg/dL (74-106); HDL Cholesterol 33 mg/dL (>or=40); Potassium 4.4 mmol/L (3.5-5.1); Sodium 141 mmol/L (136-145); Triglyceride 140 mg/dL (<150)
[2024-12-08 12:43] LABS: Calcium 9.7 mg/dL (8.5-10.1)
[2024-12-09 09:11] LABS: PSA, Screening 0.5 ng/mL (<=4.5)
== END 2024-12-08 04:20 | disposition home or self-care (01) ==
LOC: LOS 04:19
PROVIDERS: PCP Nurse Practitioner Family; Visit Provider Nurse Practitioner Family
DX: Z12.5 Encounter for screening for malignant neoplasm of prostate (principal); I10 Essential (primary) hypertension; Z13.220 Encounter for screening for lipoid disorders; Z13.1 Encounter for screening for diabetes mellitus
CPT/HCPCS: 36415; 80048; 80061; 84153; 83036